=== PATIENT | female | born 1965 | race Caucasian/White ===

== ENCOUNTER 2016-09-02 06:02 | Day surgery (SDC) | payer OTHER ==
[2016-09-01 11:50] LABS: HEMATOCRIT 37.7 % (36.0-48.0); HEMOGLOBIN 12.3 g/dL (12.0-16.0)
[2016-09-01 12:14] LABS: A/G RATIO 0.9 (0.7-1.9); ALBUMIN 3.4 G/DL (3.5-5.0); ALKALINE PHOSPHATASE 127 U/L (45-117); BUN (BLOOD UREA NITROGEN) 12 MG/DL (6-23); CHLORIDE, SERUM 107 MMOL/L (96-112); CO2 (CARBON DIOXIDE) 24 MMOL/L (24-34); CREATININE 1.04 MG/DL (0.55-1.02); GFR AFRICAN AMERICAN 72 ML/MIN (>=60); GFR NON AFRICAN AMERICAN 62 ML/MIN (>=60); GLOBULIN 3.7 G/DL (2.5-4.1); GLUCOSE, SERUM 94 MG/DL (60-99); POTASSIUM, SERUM 4.5 MMOL/L (3.5-5.3); SGPT(ALT) 21 U/L (5-65); SODIUM, SERUM 138 MMOL/L (135-148); TOTAL BILIRUBIN 0.2 MG/DL (0-1.2); TOTAL PROTEIN 7.1 G/DL (6.0-8.5)
[2016-09-01 12:17] LABS: SGOT(AST) 14 U/L (5-40)
--- NOTE | ~2016-09-02 | OP ---
Record Of Operation [place] [address] [place]. [address] NAME: LEVAR SANDOVAL : 63 STATUS : [facility]#: [id number] AGE: 50 ADM/REG DATE : 09/02/16 MR#: [id number] REPORT SERV DATE: 09/07/16 DICTATED BY: NAVARRO WRIGHT DATE: 09/07/16 REPORT STATUS : Draft TRANSCRIBED BY: MODL DATE: 09/07/16 DATE OF PROCEDURE: 09/02/2016 PREOPERATIVE DIAGNOSIS: Symptomatic cholelithiasis. POSTOPERATIVE DIAGNOSIS: Symptomatic cholelithiasis. OPERATION PERFORMED: Laparoscopic cholecystectomy. ANESTHESIA: General. ESTIMATED BLOOD LOSS: Less than 10 mL. IV FLUIDS: Adequate. INDICATION FOR PROCEDURE: Ms. Sandoval is a 50-year-old white female, who has had right upper quadrant pain and ultrasound showing cholelithiasis. She is brought to the operating room today for laparoscopic cholecystectomy. Full risks and benefits of the procedure were discussed in detail. DESCRIPTION OF OPERATION: After appropriate sedation, the patient was prepped and draped in proper sterile fashion. Skin and subcutaneous tissues around the umbilicus were infiltrated with local anesthesia. A vertical incision was made at the umbilical skin. She had a small umbilical hernia, which was opened up slightly, and a 10-mm trocar was placed in the abdomen. The abdomen was insufflated to 15 mmHg. We then placed a 10 mm subxiphoid and two right lateral 5 mm trocars under direct visualization after obtaining local anesthesia in standard fashion. Gallbladder was visualized and some adhesions too were carefully dissected away. The colon was grasped and taken cephalad. She had a fatty liver. We incised the peritoneum on both sides of the gallbladder to help with mobilization. We dissected out the cystic artery, and cystic duct, as well as posterior to the gallbladder. We were therefore able to demonstrate the critical view of safety. The cystic artery and duct were ligated between hemoclips and the gallbladder was removed from gallbladder fossa using hook cautery and brought through the umbilical trocar site. We replaced the trocar and visualized the right upper quadrant. There was some oozing from the gallbladder fossa for which we placed a small piece of Surgicel. Otherwise, there was no evidence of further bleeding or bile leak. We instilled 20 mL of Marcaine over the right lobe of the liver. We removed our trocars under direct visualization. There was no evidence of bleeding from the abdominal wall. The abdomen was then desufflated. The fascia at the umbilical trocar site was then closed using 0 Vicryl suture. The skin was closed using interrupted running 4-0 Monocryl suture. Steri-Strips and dressings were then placed. The patient was taken to recovery room in satisfactory condition. VIDHYA/KYLE Record Of [address] [place]. [address] NAME: LEVAR SANDOVAL : 63 STATUS : [facility]#: [id number] AGE: 50 ADM/REG DATE : 09/02/16 MR#: [id number] REPORT SERV DATE: 09/07/16 DICTATED BY: NAVARRO WRIGHT DATE: 09/07/16 REPORT STATUS : Draft TRANSCRIBED BY: KYLE DATE: 09/07/16 Navarro Wright M.D. / [id number] CC: Yamini Holland M.D.
[~2016-09-02 06:02] MED LIST: BIOTIN5 MG PO; CELEXA40 MG PO; ETHINYL ESTRADIOL; IMITREX100 MG PO; MULTIVITAMI1 PO; NORGESTIMATE; POTASSIUM GLUCO99 MG PO; PRILO PO; ZONEGRAN PO
== END 2016-09-02 20:21 | disposition home or self-care (01) ==
LOC: SDC 06:02
PROVIDERS: Specialist
PROC: 0FT44ZZ Resection of Gallbladder, Percutaneous Endoscopic Approach (ICD-10-PCS; principal; 2016-09-02 07:45)
DX: K80.10 Calculus of gallbladder with chronic cholecystitis without obstruction (principal); K21.9 Gastro-esophageal reflux disease without esophagitis; G43.909 Migraine, unspecified, not intractable, without status migrainosus; Z90.89 Acquired absence of other organs; Z98.890 Other specified postprocedural states
CPT/HCPCS: 80053; 84703; 85014; 85018; 88304; 93005; J0690; J1170; J2250; J2270; J2405; J2550; J2710; J3010